=== PATIENT | male | born 1965 | race Caucasian/White ===

== ENCOUNTER → 2017-06-05 | Outpatient (REF) | payer OTHER | LOC: M SFHCLERA 11:41 | DX: J02.9 Acute pharyngitis, unspecified (principal) ==

== ENCOUNTER 2020-01-06 06:24 | Emergency (ER) | payer OTHER ==
[~2020-01-06] VITALS: Ht 182.9 cm; Wt 97.9 kg
[2020-01-06] MEDS ORDERED: MELO15TA28 PO (06:39)
[2020-01-06] MEDS ORDERED: BUSP15TA47 PO (06:39)
[2020-01-06] MEDS ORDERED: LEXA1TAB2 PO (06:39)
[2020-01-06] MEDS ORDERED: ATOR1TAB19 PO (06:39)
[2020-01-06] MEDS ORDERED: LOSA100T50 PO (06:39)
[2020-01-06] MEDS ORDERED: NS 1,000 ML IV ONE (06:45)
[2020-01-06] MEDS ORDERED: dexameTHASONE 4 MG/ML 1ML VIAL (J1100 PER 1MG) IV ONE (06:45)
[2020-01-06] MEDS ORDERED: ACETAMINOPHEN 500 MG TAB PO ONE (06:45)
[2020-01-06] MEDS ORDERED: METOCLOPRAMIDE INJ 10MG/2ML VIAL (J2765 PER 1) IV ONE (06:45)
[2020-01-06] MEDS ORDERED: KETOROLAC 30 MG/ML 1ML VIAL IV ONE (06:45)
[2020-01-06 07:39] LABS: BASO # 0.1 10^3/uL (0.0-0.2); BASO % 0.7 % (0.0-1.0); EOS # 0.1 10^3/uL (0.0-0.5); EOS % 0.7 % (0.0-3.0); HEMOGLOBIN 15.3 g/dl (13.5-17.5); LYMPH % 16.5 % (24.0-44.0); MEAN CORPUSCULAR HEMOGLOBIN 31.5 pg (27.0-33.0); MEAN CORPUSCULAR VOLUME 92.6 fl (80.0-96.0); MONO % 8.6 % (0.0-5.0); NEUTROPHILS # 8.7 10^3/uL (1.5-8.5); NEUTROPHILS % 73.2 % (36.0-66.0); PLATELET COUNT, AUTOMATED 250 10^3/uL (150-450); RED BLOOD COUNT 4.86 10^6/uL (4.30-6.10); WHITE BLOOD COUNT 11.9 10^3/uL (4.0-10.0)
[2020-01-06 07:52] LABS: BLOOD UREA NITROGEN 18 MG/DL (7-18); CALCIUM LEVEL 8.7 MG/DL (8.5-10.1); CARBON DIOXIDE LEVEL 27 MEQ/L (21-32); CHLORIDE LEVEL 99 MEQ/L (98-107); CREATININE FOR GFR 1.33 MG/DL (0.70-1.30); GLOMERULAR FILTRATION RATE > 60.0 (>56); GLUCOSE, FASTING 135 MG/DL (70-100); SODIUM LEVEL 134 MEQ/L (136-145)
[2020-01-06] MEDS ORDERED: CYCL-707 PO (08:39)
[2020-01-06 08:49] VITALS: BP 138/66
[2020-01-06] MEDS ORDERED: K-TA10TA2 PO (09:07)
== END 2020-01-06 08:51 | disposition home or self-care (01) ==
LOC: M ED 06:24
DX: M54.2 Cervicalgia (principal); R51.9 Headache, unspecified; I10 Essential (primary) hypertension; F17.200 Nicotine dependence, unspecified, uncomplicated; Z88.5 Allergy status to narcotic agent; Z79.899 Other long term (current) drug therapy
CPT/HCPCS: 80048; 85025; 96361; 96374; 96375; 99284; J1100; J1885; J2765

== ENCOUNTER → 2021-02-24 | Outpatient (REF) ==
[~2021-02-24] MED LIST: ATOR1TAB19 PO; BUSP15TA47 PO; CYCL-707 PO; K-TA10TA2 PO; LEXA1TAB2 PO; LOSA100T45 PO; MELO15TA28 PO
[2021-02-24 10:35] LABS: COLLAGEN EPINEPHRINE 156 SECONDS (74-162)
== END ==
LOC: M LAB REF 10:02
PROVIDERS: ATTEND Physical Medicine & Rehabilitation
DX: Z00.00 Encounter for general adult medical examination without abnormal findings (principal)